=== PATIENT | female | born 1970 | race African-American/Black ===

== ENCOUNTER 2017-06-12 11:51 | Emergency (ER) | payer SELFPAY ==
[2017-06-12 11:52] VITALS: BP 192/88; PULSE 73; RESP 16; TEMP 98; O2SAT 98
[2017-06-12 13:19] LABS: AMORPHOUS SEDIMENT, URINE RARE; BACTERIA, URINE RARE /hpf; BILIRUBIN, URINE NEG (NEG); BLOOD, URINE MOD (NEG); GLUCOSE,URINE NEG (NEG); KETONE, URINE NEG (NEG); MUCUS URINE FEW /lpf (OCC); NITRITE,URINE NEG (NEG); SQUAMOUS EPITHELIAL CELL URINE 10 /hpf (0-5); URINE COLOR YELLOW (YELLW/STRAW); URINE LEUKOCYTE ESTERASE NEG (NEG)
--- NOTE | 2017-06-12 13:41 | PD ---
HPI Chief Complaint: Construction Rep Problem/Complaint Time Seen by Provider: 13:30 Travel History International Travel<30 days: No Contact w/Intl Traveler<30days: No Traveled to known affect area: No History of Present Illness HPI 46 y female presents to the ED complaining of yellow and white discharge for 2 weeks. Patient states that she also has had some mild itching an occasional cramping of the lower pelvic region. Patient denies unusual bleeding. Last menstrual period May 10. Patient denies fever, chills, nausea, vomiting, diarrhea, dysuria. Patient denies history of abdominal surgeries. Patient denies chronic medical issues medication use. Patient has multiple partners in she believes they are monogamous. Patient denies being a sex worker. States that she has concerned about this discharge in came to the emergency department today for evaluation. [facility] Past Medical History Medical History: Denies Significant Hx Diminished Hearing: No Tetanus Vaccination: Unknown ?: Unknown LMP: 05/11/17 Past Surgical History Surgical History: No Previous Surgery Social History Alcohol Use: No ("2 beers weekly") Tobacco Use: Yes ("sometimes") Substance Use: Yes (marijuana) Allergies-Medications (Allergen,Severity, Reaction): Coded Allergies: No Known Allergies (Unverified , 06/12/17) Review of Systems Except as stated in HPI: all other systems reviewed are Neg Physical Exam Narrative GENERAL: Well-nourished, well-developed patient. SKIN: Focused skin assessment warm/dry. HEAD: Normocephalic. EYES: No scleral icterus. No injection or drainage. NECK: Supple, trachea midline. No JVD or lymphadenopathy. CARDIOVASCULAR: Regular rate and rhythm without murmurs, gallops, or rubs. RESPIRATORY: Breath sounds equal bilaterally. No accessory muscle use. GASTROINTESTINAL: Abdomen soft, non-tender, nondistended. No rebound tenderness , masses. GENITOURINARY: Normal external genitalia without lesions or erythema. Vaginal vault without blood or drainage. Cervical os was closed without drainage. No cervical motion tenderness. Uterus nontender and nonenlarged. Bilateral adnexa nontender without masses. MUSCULOSKELETAL: No cyanosis, or edema. BACK: Nontender without obvious deformity. No CVA tenderness. Data Data Last Documented VS Vital Signs Date Time Temp Pulse Resp B/P (MAP) Pulse Ox O2 Delivery O2 Flow Rate FiO2 06/12/17 11:52 98.0 73 16 192/88 (122) 98 Orders Orders Urinalysis - C+S If Indicated (06/12/17 12:03) Ed Urine Pregnancytest Poc (06/12/17 12:03) Urine Culture (06/12/17 12:23) Azithromycin Powd Pack (Zithromax Powd P (06/12/17 13:45) Ceftriaxone Inj (Rocephin Inj) (06/12/17 13:45) Lidocaine 1% Inj (50 Ml) (Xylocaine 1% I (06/12/17 13:45) Gc And Chlamydia Pcr (06/12/17 13:49) Wet Prep Profile (06/12/17 13:49) Labs Laboratory Tests Test 06/12/17 12:23 06/12/17 13:49 06/12/17 13:50 Urine Color YELLOW Urine Turbidity HAZY Urine pH 6.0 Urine Specific [place] 1.021 Urine Protein TRACE mg/dL Urine Glucose (UA) NEG mg/dL Urine Ketones NEG mg/dL Urine Occult Blood MOD Urine Nitrite NEG Urine Bilirubin NEG Urine Urobilinogen 2.0 MG/DL Urine Leukocyte Esterase NEG Urine RBC LESS THAN 1 /hpf Urine WBC 2 /hpf Urine Squamous Epithelial Cells 10 /hpf Urine Amorphous Sediment RARE Urine Bacteria RARE /hpf Urine Mucus FEW /lpf Microscopic Urinalysis Comment CULTURE INDICATED Clue Cells (Wet Prep) PRESENT Vaginal Trichomonas (Wet Prep) NONE SEEN Vaginal Yeast (Wet Prep) NONE SEEN MDM Medical Decision Making Medical Screen Exam Complete: Yes Emergency Medical Condition: Yes Differential Diagnosis Bacterial vaginosis, chlamydia, gonorrhea, vaginal candidiasis Narrative Course 46 y female presents to the ED complaining of yellow and white discharge for 2 weeks. Patient states that she also has had some mild itching an occasional cramping of the lower pelvic region. Patient denies unusual bleeding. Last menstrual period May 10. Patient denies fever, chills, nausea, vomiting, diarrhea, dysuria. Patient denies history of abdominal surgeries. Patient denies chronic medical issues medication use. Patient has multiple partners in she believes they are monogamous. Patient denies being a sex worker. States that she has concerned about this discharge in came to the emergency department today for evaluation. Vital signs stable. Physical exam findings consistent with bacterial vaginosis, vaginal candidiasis. No abdominal tenderness or organomegaly She is treated empirically with azithromycin and Rocephin. Laboratory Tests Test 06/12/17 12:23 06/12/17 13:49 06/12/17 13:50 Urine Color YELLOW Urine Turbidity HAZY Urine pH 6.0 Urine Specific [place] 1.021 Urine Protein TRACE mg/dL Urine Glucose (UA) NEG mg/dL Urine Ketones NEG mg/dL Urine Occult Blood MOD Urine Nitrite NEG Urine Bilirubin NEG Urine Urobilinogen 2.0 MG/DL Urine Leukocyte Esterase NEG Urine RBC LESS THAN 1 /hpf Urine WBC 2 /hpf Urine Squamous Epithelial Cells 10 /hpf Urine Amorphous Sediment RARE Urine Bacteria RARE /hpf Urine Mucus FEW /lpf Microscopic Urinalysis Comment CULTURE INDICATED Clue Cells (Wet Prep) PRESENT Vaginal Trichomonas (Wet Prep) NONE SEEN Vaginal Yeast (Wet Prep) NONE SEEN I do not believe patient has a urinary tract infection as there as evidence of squamous cells in her urine along with no history of symptoms Patient be discharged with fluconazole in metronidazole. Strongly advised to follow-up with a primary care physician in gynecology. Patient states understanding will comply. Patient advised to follow-up in the emergency department for worsening or persistent symptoms. Diagnosis Primary Impression: Bacterial vaginosis Additional Impression: Vaginal candidiasis Referrals: [facility] Additional Instructions: If you develop fever, chills, severe abdominal pain, persistent vomiting or inability to eat return to the emergency department. Your pelvic exam today did not include a Pap smear. It is important to followup with a cotton tipper on a yearly basis to be tested for cervical cancer as we do not do that from the emergency department. If there is a concern that you have sexually transmitted disease, your partner should be tested. You should followup with your cotton tipper or with the health department to get tested for other sexually transmitted diseases like HIV and syphilis, as we do not test for these in the emergency department Scripts Metronidazole (Metronidazole) 500 Mg Tab 500 MG PO BID for Infection for 7 Days, #14 TAB 0 Refills Prov: Candy Paul 06/12/17 Fluconazole (Fluconazole) 150 Mg Tab 150 MG PO ONCE for Infection, #1 TAB 0 Refills Take 2-3 days after your last dose of antibiotics. Prov: Candy Paul 06/12/17 Disposition: 01 DISCHARGE HOME Condition: Stable Candy Paul Jun 12, 2017 13:41
[2017-06-12] MEDS ORDERED: AZITHROMYCIN PWD FOR SUSP 1 GM PACKET PO ONE (13:45)
[2017-06-12] MEDS ORDERED: LIDOCAINE HCL 1% 50 ML VIAL IM ONE (13:45)
[2017-06-12] MEDS ORDERED: cefTRIAXone 250 MG VIAL IM ONE (13:45)
[2017-06-12] MEDS ORDERED: FLUC150T PO (14:43)
[2017-06-12] MEDS ORDERED: METR1TAB76 PO (14:43)
== END 2017-06-12 15:19 | disposition home or self-care (01) ==
LOC: NEPD 11:51
DX: N76.0 Acute vaginitis (principal); B96.89 Other specified bacterial agents as the cause of diseases classified elsewhere; B37.3 Candidiasis of vulva and vagina; Z72.0 Tobacco use
CPT/HCPCS: 81001; 84703; 87077; 87086; 87186; 87210; 87491; 87591; 96372; 99284; J0696